=== PATIENT | male | born 1940 | race Caucasian/White ===

== ENCOUNTER → 2016-08-15 | Outpatient (CLI) | payer OTHER, BC | LOC: LAB 14:32 | PROVIDERS: ATTEND Physician Assistant Medical | DX: R73.09 Other abnormal glucose (principal) | CPT/HCPCS: 83036 ==

== ENCOUNTER → 2016-08-30 | Outpatient (CLI) | payer OTHER, BC | LOC: SLEEP LAB 19:18 | PROVIDERS: ATTEND Physician Assistant Medical | DX: G47.33 Obstructive sleep apnea (adult) (pediatric) (principal); G47.34 Idiopathic sleep related nonobstructive alveolar hypoventilation; G47.31 Primary central sleep apnea | CPT/HCPCS: 95811 ==

== ENCOUNTER → 2016-09-06 | Outpatient (CLI) | payer OTHER, BC | LOC: SLEEP LAB 19:40 | PROVIDERS: ATTEND Physician Assistant Medical | DX: G47.33 Obstructive sleep apnea (adult) (pediatric) (principal); G47.34 Idiopathic sleep related nonobstructive alveolar hypoventilation; G47.31 Primary central sleep apnea | CPT/HCPCS: 95811 ==

== ENCOUNTER → 2016-09-13 | Outpatient (CLI) | payer OTHER, BC | LOC: SLEEP LAB 19:37 | PROVIDERS: ATTEND Physician Assistant Medical | DX: G47.33 Obstructive sleep apnea (adult) (pediatric) (principal); G47.31 Primary central sleep apnea | CPT/HCPCS: 95811 ==

== ENCOUNTER → 2016-11-27 | Outpatient (CLI) | payer OTHER, BC ==
[2016-11-28 14:44] LABS: BASOPHILS # (AUTO) 0.01 10*3/UL; BASOPHILS % (AUTO) 0.1 % (0-1); EOSINOPHILS # (AUTO) 0.03 10*3/UL; EOSINOPHILS % (AUTO) 0.3 % (0-8); HEMOGLOBIN 12.4 g/dL (14.0-18.0); LYMPHOCYTES # (AUTO) 0.91 10*3/uL; MEAN CORPUSCULAR HEMOGLOBIN 35.4 PG (27-31); MEAN CORPUSCULAR HGB CONC 32.6 g/dL (33-37); MEAN CORPUSCULAR VOLUME 108.6 FL (80-90); MONOCYTES # (AUTO) 0.63 10*3/UL (0.3-0.8); MONOCYTES % (AUTO) 6.8 % (5-15); NEUTROPHILS # (AUTO) 7.65 10*3/UL; NEUTROPHILS % (AUTO) 82.4 % (50-80)
[2016-11-28 14:45] LABS: PLATELET MORPHOLOGY COMMENT NORMAL MORPHOLOGY (NORM); RBC MORPHOLOGY COMMENT NORMAL MORPHOLOGY (NORM); WBC MORPHOLOGY COMMENT NORMAL MORPHOLOGY (NORM)
[2016-11-28 14:51] LABS: BUN/CREATININE RATIO 21.25 (6-20); CALCIUM 8.4 mg/dL (8.7-10.7); SERUM ALBUMIN 3.5 g/dL (3.5-4.8)
[2016-11-28 14:54] LABS: HEMOGLOBIN A1C 7.17 % (4.2-6.0)
[2016-11-28 15:58] LABS: FREE T4 (FREE THYROXINE) 1.21 ng/dL (0.93-1.71)
== END ==
LOC: LAB 15:01
PROVIDERS: ATTEND Physician Assistant Medical
DX: I10 Essential (primary) hypertension (principal); G89.29 Other chronic pain; I48.91 Unspecified atrial fibrillation; R73.09 Other abnormal glucose; E78.5 Hyperlipidemia, unspecified; R06.02 Shortness of breath
CPT/HCPCS: 80053; 83036; 84439; 84443; 85025

== ENCOUNTER 2017-09-23 14:45 | Inpatient (IN) ==
[2017-09-23] MEDS ORDERED: Sodium Chloride 0.9% 1,000 ML PRIMARY IV ONE ×4 (15:20→20:00)
[2017-09-23] MEDS ORDERED: FAMOTIDINE 20 MG/2 ML VIAL IVP ONE (15:20)
[2017-09-23] MEDS ORDERED: ONDANSETRON 4 MG/2 ML VIAL IVP ONE (15:20)
--- NOTE | 2017-09-23 15:34 | EKG ---
[address] [place] [address] Measurements Intervals Glide Rate: 61 P: 84 [place]: 181 QRS: -31 QRSD: 146 T: 23 QT: 473 QTc: 475 Interpretive Statements SINUS RHYTHM T-WAVE ABNORMALITY, CONSIDER LATERAL ISCHEMIA Compared to ECG 08/09/2017 14:20:05 T-wave abnormality now present Possible ischemia now present Electronically Signed On 09-23-17 20:06:22 MDT by Reynaldo Ferguson [email or web address]
[2017-09-23 15:37] LABS: BASOPHILS # (AUTO) 0.01 10*3/UL; BASOPHILS % (AUTO) 0.1 % (0-1); EOSINOPHILS # (AUTO) 0.05 10*3/UL; EOSINOPHILS % (AUTO) 0.5 % (0-8); Hematocrit [HCT] 38.8 % (42.0-52.0); Hemoglobin [HGB] 13.6 g/dL (14.0-18.0); LYMPHOCYTES # (AUTO) 1.69 10*3/uL; MEAN CORPUSCULAR HGB CONC 35.1 g/dL (33-37); MEAN CORPUSCULAR VOLUME 105.4 FL (80-90); MEAN PLATELET VOLUME 10.2 FL (7.4-12.2); MONOCYTES # (AUTO) 0.76 10*3/UL (0.3-0.8); NEUTROPHILS # (AUTO) 8.36 10*3/UL; NEUTROPHILS % (AUTO) 76.5 % (50-80); RED BLOOD COUNT 3.68 10^6/uL (4.70-6.10)
[2017-09-23 15:38] LABS: PLATELET MORPHOLOGY COMMENT NORMAL MORPHOLOGY (NORM); RBC MORPHOLOGY COMMENT NORMAL MORPHOLOGY (NORM); WBC MORPHOLOGY COMMENT NORMAL MORPHOLOGY (NORM)
[2017-09-23 15:39] LABS: BLOOD UREA NITROGEN 45 mg/dL (7-22); LIPASE 144 IU/L (23-300); SERUM ALBUMIN 4.5 g/dL (3.5-4.8)
--- NOTE | 2017-09-23 18:20 | PDOC ---
HPI - History of Present Illness History of Present Illness: This is a very nice 77-year-old gentleman who comes to the ER because of the severe weakness where he can't even walk 3 feet 30 pound weight loss because every time he eats he has epigastric pain. Psoas found to be dehydrated with elevated BUNs and creatinine also had heme positive stool patient is on Eliquis. His last admission in 2015 he was diagnosed with A. fib and establish with the cardiology since then. Complains of nausea no strength abdominal pain every time he eats. He never followed up with the surgeon as an outpatient. He is now on fentanyl patch, methotrexate, diuretics. They can definitely be participating in his overall weakness and low potassium. He will be admitted for rehydration we will monitor possible echo in a.m. Past Medical History Medical History: 1. Atrial fibrillation, on Coumadin. 2. Rheumatoid arthritis. 3. Osteoarthritis. 4. BPH. 5. Hypercholesterolemia. 6. Hypertension. 7. GERD Surgical History: 1. Cholecystectomy. 2. Back surgery in 2013. 3. Carpal tunnel syndrome on both sides. 4. Imaging. 5. Right knee replacement. 6. Left knee revision Pertinent Family History: Significant for stroke in his mother, sister of diabetes complications, and father of heart failure complications Past Social History: Lives in [place], [place]. , has 3 children described as healthy, does not smoke or drink. 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 Tobacco Use: Never Smoker In the Past 12 Months, Have Used or Abuse Any of the Following Substance: None Medication / Allergies Home Medications: Home Medications 3 Medication Instructions Recorded Confirmed Type Metoprolol Succinate 1 tab PO DAILY #90 tab 11/23/15 08/24/17 History Methotrexate Sodium [Methotrexate] 6 tab PO WEEKLY #180 tab 08/14/16 08/24/17 Rx Acetaminophen [Tylenol Extra 1 tab PO Q3-4H tab 08/15/16 08/24/17 History Strength] Furosemide 40 mg PO BID #180 tab 08/15/16 08/24/17 Rx Apixaban [Eliquis] 5 mg PO BID #60 tab 09/20/16 Clinic predniSONE Tab [Deltasone Tab] 0.5 - 1 tab PO QD #90 tab 11/06/16 09/23/17 Rx Omeprazole 1 cap PO BID #180 cap 12/08/16 08/24/17 Rx Fentanyl [Duragesic] 75 mcgh TRANSDERM Q72HR #10 patch 12/12/16 Clinic Hydrocodone/Acetaminophen 1 tab PO Q4-6H #60 tab 12/21/16 Clinic [Hydrocodon-Acetaminophen 5-325] pravastatin 40 mg tablet 40 mg PO QHS #90 tab 01/24/17 09/23/17 Rx metaxalone 800 mg tablet 1 tab ORAL TID #90 tab 02/21/17 08/24/17 Rx sotalol 80 mg tablet 80 mg PO BID #60 tab 03/05/17 09/23/17 Rx tamsulosin 0.4 mg capsule 0.4 mg PO QD #90 cap 03/08/17 09/23/17 Rx gabapentin 600 mg tablet 600 mg PO BID #60 tab 05/17/17 08/24/17 Rx albuterol sulfate HFA 90 2 puff INH Q4-6H #1 inh 07/02/17 08/24/17 Rx mcg/actuation aerosol inhaler oxygen #1 ea 07/05/17 08/24/17 Rx silver sulfadiazine 1 % topical 1 applic TOPICAL QDAY #50 g 07/05/17 09/23/17 Rx cream cyanocobalamin (vit B-12) 2,500 5,000 mcg SL QDAY 08/09/17 08/24/17 History mcg sublingual tablet metolazone 2.5 mg tablet 2.5 mg PO QOD 08/09/17 09/23/17 History potassium chloride ER 20 mEq 20 meq PO QDAY #30 tab 08/20/17 09/23/17 Rx tablet,extended release fentanyl 75 mcg/hr transdermal 1 patch TRANSDERM Q72H #10 patch 08/29/17 Rx patch hydrocodone 10 mg-acetaminophen 1 tab PO TID #90 tab 08/29/17 Rx 325 mg tablet metformin 500 mg tablet 1 tab PO QD #30 tab 09/03/17 09/23/17 Rx allopurinol 300 mg tablet 300 mg ORAL QD #90 tab 09/17/17 Rx Allergies/Adverse Reactions: Allergies 3 Allergy/AdvReac Type Severity Reaction Status Date / Time aspirin Allergy Intermediate hives/rash Verified 09/23/17 14:58 Penicillins Allergy Intermediate rash Verified 09/23/17 14:58 NSAIDS (Non-Steroidal Allergy NOT Verified 09/23/17 14:58 Anti-Inflamma APPLICABLE Review of Systems - Review of Systems All Systems: Reviewed & No Additional Complaints Except as Stated - Respiratory Respiratory: DENIES: Negative System Review, Cough, Sputum, Dyspnea At Rest, Dyspnea with Exertion, Pleuritic Pain, Hemoptysis, Wheezing, Other, See HPI - Cardiovascular Cardiovascular: DENIES: Negative System Review, Chest Pain, Edema, Syncope, Palpitations, Orthopnea, Paroxysmal Nocturnal Dyspnea, Other, See HPI - Gastrointestinal Gastrointestinal / Abdominal: REPORTS: Nausea, Abdominal Pain, Bloody Stool, Poor Appetite, Bloating Exam - Vitals Vital Signs: Vital Signs Temperature 97.6 F Temperature Source Temporal Artery Scan Pulse Rate [Pulse Oximeter 60 Bilateral Radial] Respiratory Rate 18 Blood Pressure [Left Arm] 97/69 Pulse Ox 94 Oxygen Delivery Method Room Air Height 6 ft Weight 237 lb - General General Appearance: No Acute Distress, Cooperative, Disheveled - Eye Additional Eye Exam Details: 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 he had 2 retinal surgeries - Neck Neck Exam: Normal Inspection, Full ROM, No Tenderness, No Lymphadenopathy, No Thyromegaly, JVP is not Raised - Respiratory Respiratory Exam: POSITIVE: Clear to Auscultation - Bilaterally, Breathing Non Labored, Normal To Percussion, Normal to Percussion and Palpation - Cardiovascular Cardiovascular Exam: POSITIVE: RRR, No Murmur, No Clicks, No Gallops, No Rubs, PMI Non-Displaced - GI/Abdominal GI/Abdominal Exam: POSITIVE: Normal Bowel Sounds, Non Tender, Non Distended, Soft, No Masses, No Hepatomegaly, No Splenomegaly, No Organomegaly - Extremities Extremities Exam: POSITIVE: No Clubbing Present, +1 Edema Results - Labs CBC and BMP: 09/23/17 15:20 09/23/17 15:20 Assessment and Plan - Patient Problems (1) Fatigue Current Visit: Yes Status: Acute Code(s): R53.83 - Other fatigue (2) Heme positive stool Current Visit: Yes Status: Acute Code(s): R19.5 - Other fecal abnormalities (3) Abdominal pain Current Visit: No Status: Acute Code(s): R10.9 - Unspecified abdominal pain (4) Epigastric pain Current Visit: No Status: Acute Code(s): R10.13 - Epigastric pain (5) Hypercholesterolemia Current Visit: No Status: Acute Code(s): E78.0 - Pure hypercholesterolemia (6) Hypertension Current Visit: No Status: Acute Code(s): I10 - Essential (primary) hypertension Qualifiers: (7) On prednisone therapy Current Visit: No Status: Acute Code(s): Z79.52 - long term (current) use of systemic steroids (8) Rheumatoid arthritis Current Visit: No Status: Acute Code(s): M06.9 - Rheumatoid arthritis, unspecified Qualifiers: (9) Benign hypertension Current Visit: No Status: Chronic (10) Gastroesophageal reflux disease Current Visit: No Status: Chronic - Assessment / Plan Additional Assessment/Plan Details: # very nice 77-year-old gentleman with multiple medical issues and multiple medication presents with a 30 pound weight loss most likely secondary to having epigastric pain and abdominal fascia after he eats and also makes him feel sick. Patient is extremely fatigued. Most likely multifactorial from fentanyl patch, Neurontin, opioids orally. Patient is immunosuppressed on methotrexate and prednisone therapy also has A. fib on sotalol which could also be participating in this patient's nausea and unable to take food. I will admit him hydrate and replace his potassium given him 2 g of magnesium I will hold his fentanyl patch and Neurontin ultimately most likely the sotalol elective most likely will need to be held after discussion with the ladle pourer also hold his Eliquis considering his heme positive stool. I did discuss with the patient that we were holding the Eliquis and he would be at increased risk for stroke. He understands but with the heme positive stool and may be possible even epigastric ulcer this would be appropriate he understands the risks and agrees discussed with nursing daughter and
[2017-09-23] MEDS ORDERED: Magnesium Sulfate 2gm (Premix) 2 GM/50 ML BAG IV ONE ×2 (18:22→20:00)
[2017-09-23] MEDS ORDERED: ACETAMINOPHEN 500 MG TABLET PO SCH (18:22)
[2017-09-23] MEDS ORDERED: LIDOCAINE HCL 2 % 10 ML JELLY URO-JECT TOPICAL PRN (18:22)
[2017-09-23] MEDS ORDERED: PANTOPRAZOLE IV 40 MG VIAL IVP SCH (18:30)
[2017-09-23] MEDS ORDERED: ALBUTEROL SULFATE 8.5 GM HFA INHALER INH SCH (19:00)
[2017-09-23] MEDS ORDERED: LIDOCAINE W/ SODIUM BICARB 0.5 ML SYR SUBD PRN (19:42)
[2017-09-23] MEDS ORDERED: ONDANSETRON 4 MG/2 ML VIAL IVP PRN (19:43)
[2017-09-23] MEDS ORDERED: ALBUTEROL SULFATE 8.5 GM HFA INHALER INH PRN (19:45)
[2017-09-23] MEDS: Pravastatin Tab 40 MG TAB PO SCH (20:03)
[2017-09-23] MEDS: HYDROcodone-APAP 10 MG-325 MG TABLET PO SCH (20:06)
[2017-09-23] MEDS: Sotalol Tab 80 MG TAB PO SCH (20:10)
[2017-09-24] MEDS ORDERED: ACETAMINOPHEN 500 MG TABLET PO PRN (01:58)
[2017-09-24 04:46] LABS: BASOPHILS # (AUTO) 0.01 10*3/UL; BASOPHILS % (AUTO) 0.1 % (0-1); EOSINOPHILS # (AUTO) 0.14 10*3/UL; EOSINOPHILS % (AUTO) 1.6 % (0-8); Hematocrit [HCT] 33.4 % (42.0-52.0); Hemoglobin [HGB] 11.5 g/dL (14.0-18.0); LYMPHOCYTES # (AUTO) 1.92 10*3/uL; MEAN CORPUSCULAR HEMOGLOBIN 36.7 PG (27-31); MEAN CORPUSCULAR HGB CONC 34.4 g/dL (33-37); MEAN CORPUSCULAR VOLUME 106.7 FL (80-90); MEAN PLATELET VOLUME 10.3 FL (7.4-12.2); MONOCYTES # (AUTO) 0.67 10*3/UL (0.3-0.8); MONOCYTES % (AUTO) 7.8 % (5-15); NEUTROPHILS # (AUTO) 5.82 10*3/UL; NEUTROPHILS % (AUTO) 67.7 % (50-80); RED BLOOD COUNT 3.13 10^6/uL (4.70-6.10)
[2017-09-24 04:51] LABS: WBC MORPHOLOGY COMMENT NORMAL MORPHOLOGY (NORM)
[2017-09-24 04:52] LABS: PLATELET MORPHOLOGY COMMENT NORMAL MORPHOLOGY (NORM); RBC MORPHOLOGY COMMENT NORMAL MORPHOLOGY (NORM)
[2017-09-24 05:21] LABS: BLOOD UREA NITROGEN 36 mg/dL (7-22)
--- NOTE | 2017-09-24 06:51 | PDOC ---
General Adult HPI - General Chief Complaint: Nausea / Vomiting / Diarrhea Stated Complaint: WEAKNESS Date Seen by Provider: 09/23/17 Time Seen by Provider: 15:00 Source: POSITIVE: Patient, Spouse Exam Limitations: POSITIVE: No limitations Nurse's Notes Reviewed & Considered: Yes - History of Present Illness Initial Comment: The patient is a 77-year-old male who is brought to the emergency room by his . For approximately the past 2 weeks the patient states he has had difficulty eating because of pain when he swallows, located mainly in the center sternal and subxiphoid area. He states he is "getting real weak". The patient fell last night as he was walking to the bathroom because he was "weak and lost his balance ". The patient had to have his granddaughter helped him to his feet and back to bed. The patient and his also report that he is been having some "blood in his stool ". Patient has a history of type II diabetes mellitus for which she takes metformin. Also has a history of atrial fibrillation and is on Laura Reymundo. 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 Patient has been receiving injections into his left eye. Patient has a history of arthritis for which she takes methotrexate and he also takes a fentanyl patch for arthritic pain. reports that he has a history of hypokalemia and hypomagnesemia. Have you received a tetanus shot in the past 10 years?: Unknown Body Location Affected: REPORTS: Other (As above; odynophagia, blood in stool, generalized weakness.) Timing: REPORTS: Gradual, Getting Worse Duration: >1 week (Progressively worse for 2 days) Severity: Moderate Quality: REPORTS: "Pain" (Pain mainly with swallowing) Context: REPORTS: None Modifying Factors: improves with: Nothing Similar Symptoms Previously: No Recent Care Received: REPORTS: Denies Any Prior Injuries Related to Current Complaint?: No - Patient Home Medications Home Medications: Home Medications Metoprolol Succinate 1 tab PO DAILY #90 tab 11/23/15 Methotrexate Sodium [Methotrexate] 6 tab PO WEEKLY #180 tab 08/14/16 Acetaminophen [Tylenol Extra Strength] 1 tab PO Q3-4H tab 08/15/16 Furosemide 40 mg PO BID #180 tab 08/15/16 Apixaban [Eliquis] 5 mg PO BID #60 tab 09/20/16 predniSONE Tab [Deltasone Tab] 0.5 - 1 tab PO QD #90 tab 11/06/16 Omeprazole 1 cap PO BID #180 cap 12/08/16 Fentanyl [Duragesic] 75 mcgh TRANSDERM Q72HR #10 patch 12/12/16 Hydrocodone/Acetaminophen [Hydrocodon-Acetaminophen 5-325] 1 tab PO Q4-6H #60 tab 12/21/16 pravastatin 40 mg tablet 40 mg PO QHS #90 tab 01/24/17 metaxalone 800 mg tablet 1 tab ORAL TID #90 tab 02/21/17 sotalol 80 mg tablet 80 mg PO BID #60 tab 03/05/17 tamsulosin 0.4 mg capsule 0.4 mg PO QD #90 cap 03/08/17 gabapentin 600 mg tablet 600 mg PO BID #60 tab 05/17/17 albuterol sulfate HFA 90 mcg/actuation aerosol inhaler 2 puff INH Q4-6H #1 inh 07/02/17 oxygen #1 ea 07/05/17 silver sulfadiazine 1 % topical cream 1 applic TOPICAL QDAY #50 g 07/05/17 cyanocobalamin (vit B-12) 2,500 mcg sublingual tablet 5,000 mcg SL QDAY metolazone 2.5 mg tablet 2.5 mg PO QOD 08/09/17 potassium chloride ER 20 mEq tablet,extended release 20 meq PO QDAY #30 tab 07/08 fentanyl 75 mcg/hr transdermal patch 1 patch TRANSDERM Q72H #10 patch 08/29/17 hydrocodone 10 mg-acetaminophen 325 mg tablet 1 tab PO TID #90 tab 08/29/17 metformin 500 mg tablet 1 tab PO QD #30 tab 09/03/17 allopurinol 300 mg tablet 300 mg ORAL QD #90 tab 09/17/17 - Patient Allergies Allergies/Adverse Reactions: Allergies 3 Allergy/AdvReac Type Severity Reaction Status Date / Time aspirin Allergy Intermediate hives/rash Verified 09/23/17 14:58 Penicillins Allergy Intermediate rash Verified 09/23/17 14:58 NSAIDS (Non-Steroidal Allergy NOT Verified 09/23/17 14:58 Anti-Inflamma APPLICABLE Past Medical History - heen HEENT History: Cataracts, Hard of Hearing Cardiovascular History: Hypertension, Arrhythmia, Hyperlipidemia Additional Cardiovasular History: A-FIB PT ON ELIQUIS Respiratory History: Home Oxygen Use, Snoring Additional Respiratory History: 3.5LITERS AT HS Gastrointestinal History: GERD, Gallbladder Disease Additional Gastrointestinal History: gallstones LAP BANDING IN AND REMOVED Genitourinary History: Denies History Additional Genitourinary History: HX OF BPH Endocrine History: Denies History Musculoskeletal History: Gout, Rheumatoid Arthritis, Osteoarthritis, Other ( please comment) Prosthesis or Implant: Yes (RIGHT KNEE) Additional Musculoskeletal History: ambulatory w/cane Neurological History: Denies History Blood Disorders: Other (please comment) Additional Blood Disorders History: Vit B12 def. Psychiatric History: Denies History History of Sexually Transmitted Diseases: No Cancer History: Skin Cancer Treatment / Date(s) of Treatment: REMOVED SKIN CANCER In Past Year Been Physically Harmed or Verbally Threatened: No History of MDRO: No History of Other Communicable Diseases: No Tobacco Use: Never Smoker Alcohol Use: Rarely In the Past 12 Months, Have Used or Abuse Any Substance: None Previous Surgical History: Yes Type / Date of Surgery: BILAT CTR/ BILAT CATARACTS/ GARO/ EGD TO REMOVE LAP BAND/ LAP BAND/ BILAT KNEE SCOPE/ UPPER SPINE LUMBAR STENOSIS DERMAL FASCIS GRAFT/RIGHT TKA Anesthesia Reactions: No Malignant Hyperthermia: No Significant Family History: No pertinent family hx Past Medical History Reviewed: Reviewed - No Changes ROS - Limitations ROS Limitations: No Limitations Constitution: REPORTS: Denies Symptoms Cardiovascular: REPORTS: Denies Cardiac Symptoms Respiratory: REPORTS: Denies Resp Symptoms Neurological: REPORTS: Denies Neuro Symptoms Gastrointestinal: REPORTS: Bloody Stools Endocrine: REPORTS: Fatigue Musculoskeletal: REPORTS: Denies MS Symptoms Genitourinary: REPORTS: Denies Symptoms Eyes: REPORTS: Denies Symptoms ENT: REPORTS: Denies Symptoms Skin: REPORTS: Denies Skin Symptoms Lympathic: REPORTS: Denies Lympathic Symptoms Immunologic: POSITIVE: Denies Symptoms Psychiatric: POSITIVE: Denies Psych Symptoms General Adult Exam - General Appearance General Appearance: POSITIVE: Alert, Cooperative, No Acute Distress, No Evidence of Trauma - HEENT HEENT: POSITIVE: Head Inspection Nml, Eyes Inspection Nml, Ears Inspection Nml, Nose Inspection Nml, Oral/Dental Inspect. Nml, Pharynx Inspect. Nml, PERRL, EOMI - Pupils Pupil Size: 4 mm: Bilateral - Neck Neck: POSITIVE: Normal Inspection, Thyroid Normal - Respiratory Respiratory: POSITIVE: No Respiratory Distress, Breath Sounds Normal, Chest Non- Tender - Cardiovascular Cardiovascular: POSITIVE: Regular Rate & Rhythm, No Murmur, No Gallop, PMI Normal Peripheral Pulses: Radial (R): 2+, Radial (L): 2+ - Abdomen Abdomen: Soft: (All Quadrants), Normal Bowel Sounds: (All Quadrants), Denies Tenderness: (All Quadrants), No Splenomegaly: (All Quadrants), No Hepatomegaly: (All Quadrants), No Guarding: (All Quadrants), No Rebound: (All Quadrants), No Palpable Pulse: (All Quadrants), No Palpabale Mass: (All Quadrants), No Distention: (All Quadrants), No Rigidity: (All Quadrants) Additional Abdominal Details: I observed the patient swallowing some water. As he did so he complained of pain in the subxiphoid and substernal area. He had no regurgitation or vomiting. 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 NEGATIVE: Normal ST/T (T-wave inversion and some depression V1 through V5) - Patient's Progress Pain Medication Addressed: POSITIVE: Not Applicable School/Work Release Addressed: POSITIVE: Not Applicable Re-Examine Time: 17:00 Re-Examine Comment: Patient hydrated with normal saline. Condition essentially unchanged. Case discussed with Dr. Hinson, hospitalist Status: POSITIVE: Unchanged, Re-Examined Antibiotics Given: No - Consult Consult (If Yes, Name of Consulting MD & Time Called): Yes (Dr. Hinson, hospitalist, [id number]) Consulting MD will see pt:: [place]IVE[place] [facility] [place] Counseled: POSITIVE: Patient, Family, RE: Lab Results, RE: DX, RE: Need for F/U Patient Care Time - Estimated PCT Patient Care Time (In Minutes): 60 Vital Signs - VS Reviewed Vital Signs Reviewed: Yes Discharge Clinical Impression: Arthritis, Odynophagia, Gastrointestinal bleeding, Hypokalemia, Diabetes mellitus, Abnormal ECG Discharge Disposition: Admit to Inpatient Condition: Fair Date Decision to Admit to Inpatient: 09/23/17 Time Decision to Admit to Inpatient: 16:00
[2017-09-24] MEDS: HYDROcodone-APAP 10 MG-325 MG TABLET PO SCH ×3 (08:37→21:40)
[2017-09-24] MEDS: predniSONE Tab 20 MG TAB PO SCH ×2 (08:37→08:58)
[2017-09-24] MEDS: Sotalol Tab 80 MG TAB PO SCH ×3 (08:37→21:18)
[2017-09-24] MEDS: METOPROLOL SUCCINATE 50 MG SR 24H TABLET PO SCH (08:37)
[2017-09-24] MEDS: TAMSULOSIN 0.4 MG CAPSULE PO SCH ×2 (08:37→08:58)
[2017-09-24] MEDS: POTASSIUM CHLORIDE 20 MEQ TAB PO SCH ×2 (08:57→21:17)
[2017-09-24] MEDS ORDERED: CYANOCOBALAMIN 5000 MCG SL SCH (09:00)
[2017-09-24] MEDS: PANTOPRAZOLE IV 40 MG VIAL IVP SCH (09:45)
[2017-09-24] MEDS ORDERED: Magnesium Sulfate 2gm (Premix) 2 GM/50 ML BAG IV ONE (10:39)
[2017-09-24] MEDS ORDERED: Hold Metformin-See Instruction 1 EACH MIS PRN (12:31)
--- NOTE | 2017-09-24 16:09 | DI ---
CT CHEST SCAN WITHOUT IV CONTRAST, 09/24/2017 12:31 PM : Clinical History: Hypoxia. Weight loss. Previous Exam: None at this facility. Scans are performed from the base of the neck to the lower lung bases without IV contrast. Sagittal a nd coronal images using non MIPS and MIPS technique are generated. There is deviation of the trachea to the left of midline secondary to a large partially calcified mas s in the right lobe of the thyroid gland consistent with a substernal goiter. The right lobe measures approximately 35 x 45 x 50 mm in transverse, AP, and longitudinal dimensions. There is a large amoun t of mediastinal fat extending from the thoracic inlet to the superior mediastinum. There are no abno rmal axillary, supraclavicular, mediastinal, or hilar nodes. Calcifications are present in all 3 leaf lets of the aortic valve. There are calcifications in the left mainstem, the proximal third of the LA D and first diagonal branch, as well as the left circumflex and right coronary arteries. There is a d ense calcification at the base of the heart between the left atrium and ventricle and this may be bruna cification of the mitral valve annulus but a calcified inferior wall infarct cannot entirely be exclu ded. There is no acute infiltrate, but there is atelectasis in the right lower lobe along with mild l ower lobe bronchiectasis bilaterally. There is atelectasis in the lateral segment of the right middle lobe and the right diaphragm is elevated. Pleural thickening is present posteriorly in the left sulc us. There is a small calcified 3-4 mm granuloma in the right lower lobe. Both adrenal glands are norm al. READIN. There is no acute infiltrate or effusion. There is atelectasis involving the lateral segment of t he right middle lobe and in the right lower lobe. Mild bronchiectasis is present in both lower lobes. Pleural thickening is present posteriorly in the left sulcus. 2. The aortic valve has calcifications in all 3 leaflets. Calcifications are present in all 3 major coronary arteries. 3. There is a calcification near the region of the mitral valve inferiorly in this either represents calcification in the mitral valve annulus or possibly a calcified inferior wall infarct.
--- NOTE | 2017-09-24 16:36 | DI ---
CT ABDOMEN SCAN WITHOUT AND WITH IV CONTRAST, 09/24/2017 12:31 PM : Clinical History: Heme positive stools. Weight loss. Previous Exam: 09/14/2011. Scans are performed from the lower lung bases through the liver and kidneys without and with IV contr ast. 75 mL of Isovue 300 was injected IV. No oral or rectal contrast was ordered. Sagittal and mcleod l reformatted images are generated. The lung bases are clear. The liver is normal. The patient is status post cholecystectomy and the com mon bile duct measures 8 mm. Since the last exam, a stent may have been placed in the distal common b ile duct. Both adrenal glands, the pancreas, and the spleen are normal. Both kidneys are normal in si ze, shape, position and contour. There is no hydronephrosis or hydroureter. No left renal or ureteral calculi are present. There is a 3-4 mm nonobstructing lower pole renal calculus on the right side. T here is no right hydroureter. There are no abnormal retrocrural or periaortic nodes. There is no asci jorge. The stomach, duodenum, and the small bowel to at least the mid point are normal. The ascending, transverse, and descending colon show no annular lesion. The remainder of the colon is not visualized . READIN. There is no obvious lesion to explain the blood loss in the visualized portions of the of the sto mach, small bowel and colon. 2. There is a nonobstructing 3-4 mm right renal calculus in the lower pole.
--- NOTE | 2017-09-24 19:29 | PDOC(PROG) ---
Date and Time of Service: 09/24/2017, 1923 Interval History: seen twice today no chest pain gets food stuck in lower chest and this has been going on for some time. Has lost 30 pounds in the last 6 . Was guaiac positive in the emergency room. 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 Had a heart catheterization done by Dr. Ramírez in [place]. We will try and get records. Still quite weak and fatigued. Objective : Data - Labs CBC and BMP: 09/24/17 04:12 09/24/17 04:12 Objective : Exam - General General Appearance: No Acute Distress, Cooperative Additional General Exam Details: Vital Signs - Last Taken Temperature 97.7 F 09/24/17 17:00 Pulse Rate 59 L 09/24/17 17:00 Respiratory Rate 18 09/24/17 17:00 Blood Pressure 122/64 09/24/17 17:00 Pulse Ox 94 09/24/17 17:00 - Eye Eye Exam: No Scleral Icterus - ENT ENT Exam: Mucous Membranes Moist - Respiratory Respiratory Exam: Clear to Auscultation - Bilaterally, Breathing Non Labored - Cardiovascular Cardiovascular Exam: RRR, No Murmur, No Clicks, No Gallops, No Rubs, No JVD - GI/Abdominal GI/Abdominal Exam: Normal Bowel Sounds, Non Tender, Non Distended, Soft - Rectal Rectal Exam: Deferred (Was done in the emergency room and my discussion with hospitalist going off service today.) - Extremities Extremities Exam: No Clubbing Present, No Edema Present, No Cyanosis Present - Neurological Neurological Exam: Alert, Oriented x 3, No Facial Droop, Speech Intact / Clear, Moves All Extremities Equally Assessment and Plan - Patient Problems (1) Heme positive stool Current Visit: Yes Status: Acute Code(s): R19.5 - Other fecal abnormalities (2) Abdominal pain Current Visit: Yes Status: Acute Code(s): R10.9 - Unspecified abdominal pain Qualifiers: Abdominal location: generalized Qualified Code(s): R10.84 - Generalized abdominal pain (3) Epigastric pain Current Visit: Yes Status: Acute Code(s): R10.13 - Epigastric pain (4) Rheumatoid arthritis Current Visit: Yes Status: Acute Code(s): M06.9 - Rheumatoid arthritis, unspecified Qualifiers: Rheumatoid arthritis location: multiple sites Rheumatoid factor presence: unspecified presence Qualified Code(s): M06.9 - Rheumatoid arthritis, unspecified (5) On prednisone therapy Current Visit: Yes Status: Chronic Code(s): Z79.52 - senior living (current) use of systemic steroids (6) Hypercholesterolemia Current Visit: Yes Status: Chronic Code(s): E78.0 - Pure hypercholesterolemia (7) Hypertension Current Visit: No Status: Acute Code(s): I10 - Essential (primary) hypertension Qualifiers: (8) Benign hypertension Current Visit: Yes Status: Chronic (9) Gastroesophageal reflux disease Current Visit: Yes Status: Chronic Qualifiers: Esophagitis presence: esophagitis presence not specified Qualified Code(s) : K21.9 - Gastro-esophageal reflux disease without esophagitis (10) Fatigue Current Visit: Yes Status: Acute Code(s): R53.83 - Other fatigue Qualifiers: Fatigue type: chronic, unspecified Qualified Code(s): R53.82 - Chronic fatigue, unspecified (11) Loss of weight Current Visit: Yes Status: Acute Code(s): R63.4 - Abnormal weight loss - Assessment / Plan Additional Assessment/Plan Details: There is a whole constellation of several medical findings, including heme positive stool, anemia, possibly, epigastric pain, dysphagia to solids and liquids, in fact the patient tells me along with his and daughter that he has avoided solid food intake. Given this constellation of findings, I think that more investigative work will need to be done, including CT scans of the chest, abdomen and pelvis, as well as probable EGD and colonoscopy. I spoke with surgery. I think these need to be done inpatient, particularly with his atrial fibrillation and novel oral anticoagulant therapy need. This all should be done as an inpatient given the extensive nature of the workup , and the fact that the patient really needs to have this figured out to some degree prior to discharge. Do thyroid studies, B12 levels and other levels tomorrow. I consulted surgery and we will start prep tomorrow and give him more time off of eliquis Try to cut out on opiate therapy as much as possible. Stop fentanyl altogether. 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 The patient is not symptomatic from his atrial fibrillation, but I don't know how he responded to rate control agents in the past and find out that from old records. Complex, multiple issues, general malaise and ill. Discussed with family at bedside.
--- NOTE | 2017-09-24 20:24 | DI ---
CT ABDOMEN SCAN WITHOUT AND WITH IV CONTRAST, 09/24/2017 6:40 PM : Clinical History: Weight loss. Weakness. Hemoccult positive stools. Previous Exam: 09/14/[address] abdomen scan from today. Scans are performed from the lower lung bases through the liver and kidneys without and with IV contr ast. Sagittal and coronal images are generated. 50 mL of Isovue 300 was injected IV. Water was used f or oral contrast for this study. The patient did receive Volumen for the CT scans of the abdomen perf ormed earlier today. Mild bronchiectasis is present in both lower lobes. There is calcific aortic valvular disease along w ith calcifications in the LAD and left mainstem and the right coronary artery and the left circumflex artery. The liver is normal. The patient is status post cholecystectomy and the common bile duct randall sures 8 mm. As previously noted, this patient may have stents in the common bile duct. There is no ab normality of the spleen, pancreas, and adrenal glands. Both kidneys are normal in size, shape, positi on and contour. There is no hydronephrosis or hydroureter. No renal or ureteral calculi are present. There are no abnormal retrocrural or periaortic nodes. There is no ascites. READIN. Normal CT abdomen scan without and with IV contrast. There may be a stent in the common bile duct . 2. Calcific aortic valvular disease. Coronary artery disease. CT PELVIS SCAN WITHOUT AND WITH IV CONTRAST, 09/24/2017 6:40 PM: Clinical History: See above. Previous Exam: 09/14/2011. Scans are performed from just superior to the umbilicus to the symphysis pubis without and with IV co ntrast. This is the same bolus of IV contrast used for the CT scans of the abdomen. Scans through the lower abdomen and pelvis show no masses, enhancing lesions, or abnormal fluid colle ctions. There is no adenopathy. The appendix is not visualized but there is no inflammatory mass eith er in the cecal tip or in the right lower quadrant. The small bowel, terminal ileum, and ileocecal va lve are intact. The colon is also normal. No annular lesions of the colon are identified. There is d iffuse diverticulosis without evidence of diverticulitis. There is a small umbilical hernia through w hich only mesenteric fat has herniated. Moderate prostatic hypertrophy is present. There are calcific ations along the posterior aspect of the ischium and this presumably is secondary to prior trauma to that portion of the pelvis. READING: Normal CT scan of the pelvis without and with IV contrast. There is no obvious lesion to explain the presence of blood in the patient's stools.
[2017-09-24] MEDS: Pravastatin Tab 40 MG TAB PO SCH (21:18)
[2017-09-25 05:11] LABS: Hematocrit [HCT] 30.9 % (42.0-52.0); Hemoglobin [HGB] 10.6 g/dL (14.0-18.0); MEAN CORPUSCULAR HEMOGLOBIN 37.1 PG (27-31); MEAN CORPUSCULAR HGB CONC 34.3 g/dL (33-37); MEAN PLATELET VOLUME 9.8 FL (7.4-12.2); RED BLOOD COUNT 2.86 10^6/uL (4.70-6.10)
[2017-09-25 05:34] LABS: BLOOD UREA NITROGEN 22 mg/dL (7-22); BUN/CREATININE RATIO 31.42 (6-20); SERUM ALBUMIN 2.9 g/dL (3.5-4.8)
[2017-09-25 06:02] LABS: PLATELET MORPHOLOGY COMMENT NORMAL MORPHOLOGY (NORM); RBC MORPHOLOGY COMMENT SEE COMMENTS (NORM)
[2017-09-25 06:03] LABS: BAND NEUTROPHILS % 0 % (0-10); BASOPHILS % (MANUAL) 0 % (0-1); EOSINOPHILS % (MANUAL) 0 % (0-8); MONOCYTES % (MANUAL) 4 % (0-12); NEUTROPHILS % (MANUAL) 74 % (50-80); WBC MORPHOLOGY COMMENT NORMAL MORPHOLOGY (NORM)
[2017-09-25] MEDS: POTASSIUM CHLORIDE 20 MEQ TAB PO SCH (08:21)
[2017-09-25] MEDS: predniSONE Tab 20 MG TAB PO SCH (08:21)
[2017-09-25] MEDS: Sotalol Tab 80 MG TAB PO SCH ×2 (08:21→08:23)
[2017-09-25] MEDS: METOPROLOL SUCCINATE 50 MG SR 24H TABLET PO SCH ×2 (08:21→08:24)
[2017-09-25] MEDS: PANTOPRAZOLE IV 40 MG VIAL IVP SCH (08:21)
[2017-09-25] MEDS: TAMSULOSIN 0.4 MG CAPSULE PO SCH (08:21)
[2017-09-25] MEDS: HYDROcodone-APAP 10 MG-325 MG TABLET PO SCH (08:21)
--- NOTE | 2017-09-25 09:28 | CONSULT ---
Consult Note - Consult Consult Date: 09/25/17 Reason for Consult: PreOp Consulation : General Surgery Requesting Physician: Dr. Weber Primary Care Provider: Jessica Hollingsworth PA-C - History of Present Illness History of Present Illness: This 77-year-old male whose be developed over last month some epigastric abdominal discomfort. He doesn't really class that his pain is sick, nauseated feeling. He does point to the midepigastric to right upper quadrant area. Patient's laboratory values all were within normal limits. Patient did have Hemoccult-positive stools. Patient had a CT scan shows that he has a biliary stent in place. Reviewing the records he had a laparoscopic cholecystectomy in 2011. At that time he was sent for an ERCP because a common duct stones. Therefore, he's had a biliary stent in since 2011. Past Medical History Medical History: 1. Atrial fibrillation, on Coumadin. 2. Rheumatoid arthritis. 3. Osteoarthritis. 4. BPH. 5. Hypercholesterolemia. 6. Hypertension. 7. GERD Surgical History: 1. Cholecystectomy. 2. Back surgery in 2013. 3. Carpal tunnel syndrome on both sides. 4. Imaging. 5. Right knee replacement. 6. Left knee revision Pertinent Family History: Significant for stroke in his mother, sister of diabetes complications, and father of heart failure complications Past Social History: Lives in [place], [place]. , has 3 children described as healthy, does not smoke or drink. 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 Tobacco Use: Never Smoker In the Past 12 Months, Have Used or Abuse Any of the Following Substance: None Medication / Allergies Home Medications: Home Medications 3 Medication Instructions Recorded Confirmed Type Metoprolol Succinate 1 tab PO DAILY #90 tab 11/23/15 08/24/17 History Methotrexate Sodium [Methotrexate] 6 tab PO WEEKLY #180 tab 08/14/16 08/24/17 Rx Acetaminophen [Tylenol Extra 1 tab PO Q3-4H tab 08/15/16 08/24/17 History Strength] Furosemide 40 mg PO BID #180 tab 08/15/16 08/24/17 Rx Apixaban [Eliquis] 5 mg PO BID #60 tab 09/20/16 Clinic predniSONE Tab [Deltasone Tab] 0.5 - 1 tab PO QD #90 tab 11/06/16 09/23/17 Rx Omeprazole 1 cap PO BID #180 cap 12/08/16 08/24/17 Rx Fentanyl [Duragesic] 75 mcgh TRANSDERM Q72HR #10 patch 12/12/16 Clinic Hydrocodone/Acetaminophen 1 tab PO Q4-6H #60 tab 12/21/16 Clinic [Hydrocodon-Acetaminophen 5-325] pravastatin 40 mg tablet 40 mg PO QHS #90 tab 01/24/17 09/23/17 Rx metaxalone 800 mg tablet 1 tab ORAL TID #90 tab 02/21/17 08/24/17 Rx sotalol 80 mg tablet 80 mg PO BID #60 tab 03/05/17 09/23/17 Rx tamsulosin 0.4 mg capsule 0.4 mg PO QD #90 cap 03/08/17 09/23/17 Rx gabapentin 600 mg tablet 600 mg PO BID #60 tab 05/17/17 08/24/17 Rx albuterol sulfate HFA 90 2 puff INH Q4-6H #1 inh 07/02/17 08/24/17 Rx mcg/actuation aerosol inhaler oxygen #1 ea 07/05/17 08/24/17 Rx silver sulfadiazine 1 % topical 1 applic TOPICAL QDAY #50 g 07/05/17 09/23/17 Rx cream cyanocobalamin (vit B-12) 2,500 5,000 mcg SL QDAY 08/09/17 08/24/17 History mcg sublingual tablet metolazone 2.5 mg tablet 2.5 mg PO QOD 08/09/17 09/23/17 History potassium chloride ER 20 mEq 20 meq PO QDAY #30 tab 08/20/17 09/23/17 Rx tablet,extended release fentanyl 75 mcg/hr transdermal 1 patch TRANSDERM Q72H #10 patch 08/29/17 Rx patch hydrocodone 10 mg-acetaminophen 1 tab PO TID #90 tab 08/29/17 Rx 325 mg tablet metformin 500 mg tablet 1 tab PO QD #30 tab 09/03/17 09/23/17 Rx allopurinol 300 mg tablet 300 mg ORAL QD #90 tab 09/17/17 Rx Allergies/Adverse Reactions: Allergies 3 Allergy/AdvReac Type Severity Reaction Status Date / Time aspirin Allergy Intermediate hives/rash Verified 09/24/17 07:33 Penicillins Allergy Intermediate rash Verified 09/24/17 07:33 NSAIDS (Non-Steroidal Allergy NOT Verified 09/24/17 07:33 Anti-Inflamma APPLICABLE Results - Labs CBC and BMP: 09/25/17 04:55 09/25/17 04:55 Exam - Vitals Vital Signs: Vital Signs Temperature 97.1 F Temperature Source Temporal Artery Scan Pulse Rate [Pulse Oximeter] 59 Pulse Rate [Pulse Oximeter 59 Bilateral Radial] Respiratory Rate 18 Blood Pressure [Right Arm] 121/65 Blood Pressure [Left Arm] 111/65 Pulse Ox 97 Oxygen Flow Rate 2 Oxygen Delivery Method Room Air Height 6 ft Weight 241 lb - General General Appearance: No Acute Distress - GI/Abdominal GI/Abdominal Exam: POSITIVE: Non Tender, Non Distended Assessment and Plan - Patient Problems (1) Abdominal pain Current Visit: Yes Status: Acute Code(s): R10.9 - Unspecified abdominal pain Qualifiers: Abdominal location: generalized Qualified Code(s): R10.84 - Generalized abdominal pain - Assessment / Plan Additional Assessment/Plan Details: At this point using a biliary stent may be causing all the patient's symptoms. This could be causing abdominal pain. Also if his irritations light bleeding could be causing some Hemoccult-positive stools. Patient did have a unremarkable EGD and colonoscopy in 2016. I did call Dr. Covarrubias who does agree that the biliary stent needs removed. I would recommend that we get an appointment with and then he can get the biliary stent out at that time.
--- NOTE | 2017-09-25 11:47 | DCSUMMARY ---
Hospitalization Summary Admit Date: 09/23/2017 Discharge Date: 09/25/17 Primary Diagnosis:: epigastric pain, GI bleed, retained biliary stent Hospital Course: This very pleasant 77-year-old male that presented with weakness, weight loss, and overall generalized malaise. He is admitted, and it was presumed that some of this could be related to medications. Fentanyl patch was discontinued, and it was recommended that that be stopped indefinitely. Given the weight loss, positive rectal exam for guaiac positive stool in the emergency room, I felt it would be best to do CT scan of the chest, abdomen and pelvis, and it turns out that there could be a possible retained biliary stent. I also thought that with a hemoglobin dropping from 13 overnight with anemia, that the patient would benefit from an EGD and possibly colonoscopy. I consulted a surgeon. I did discuss with the patient whether not he had a biliary stent but he could not remember. It turns out that are surgeon, Dr. Trejo had actually done the gallbladder removal in 2011 on this patient. The patient had been sent for a common bile duct retained stone, and so it was determined by Dr. Trejo that this patient had a retained stent. He called gastroenterology in [place] and was advised that yes the stent should probably come out at some point. Given the drop in hemoglobin from around 13 on admission to 10.6 today, the continued pain, weight loss over last 3 months the fact that he has atrial fibrillation and is off of his eliquis at this point, I think this would be a perfect opportunity to do this as an inpatient. I spoke with the hospitalist and cell biology scientist in [place] and they were willing to accept the patient. Final recommendations from this hospital stay were to stop fentanyl patch, start vitamin D, retest thyroid in about 3-4 weeks, and eventually visit cardiology to start getting off medications like sotalol due to fatigue and deconditioning. The patient can continue on his hydrocodone on a when necessary basis for pain. Today, he denies any chest pain, denies shortness breath. He is willing to go to [place] to deal with these issues. Assessment and Plan: 1. As per discharge assessments noted 2. Disposition: [facility] 3. Condition on discharge, stable and improved. 4. Diet: Nothing by mouth at discharge 5. Activities: As per [facility] 6. Follow-Up: 1. Primary care provider 1 week postdischarge 2. 7. Medications at the Time of Discharge: Active Medications Generic Name Dose Route Start Last Admin Trade Name Freq PRN Reason Stop Dose Admin Acetaminophen 500 mg 09/24/17 01:58 Tylenol PO Q4H PRN Pain Hydrocodone Bitart/Acetaminophen 1 tab 09/23/17 21:00 09/25/17 08:21 [place] 10/325 Tab PO 1 tab TID ASYA Administration Albuterol Sulfate 2 puff 09/23/17 19:45 Proair Hfa Inhaler INH RTQ4H PRN Wheezing / Shortness of Breath Potassium Chloride/Sodium Chloride 1,000 mls @ 75 mls/hr 09/23/17 18:22 09/25 06:58 Pot Chl 20meq + Ns PRIMARY IV 75 mls/hr .[id number] ASYA Administration Potassium Chloride 20 meq in 100 mls @ 50 mls/hr 09/25/17 10:53 Potassium Chloride 20 Meq IV 09/25/17 12:52 ONCE ONE Lidocaine HCl 10 ml 09/23/17 18:22 Xylocaine Uro-Ject 2% TOPICAL ONCE PRN Discomfort catheter insertion Lidocaine HCl 0.5 ml 09/23/17 19:42 Lidocaine Buffered Inj SUBD ONCE PRN IV Starts Metoprolol Succinate 50 mg 09/24/17 09:00 09/25/17 08:24 Toprol Xl PO Not Given DAILY ASYA Non-Formulary Drug ( 6 tab 09/28/17 09:00 Methotrexate Sodium PO 2.5mg Tab) WEEKLY ASYA Non-Formulary Medication 1 each 09/24/17 12:31 Hold Metformin-See Dose Instructions N/A ONCE PRN Per Protocol Ondansetron HCl 4 mg 09/23/17 19:43 Zofran Inj IVP Q6H PRN NAUSEA / VOMITING Pantoprazole Sodium 40 mg 09/24/17 09:00 09/25/17 08:21 Protonix Inj IVP 40 mg DAILY ASYA Administration Potassium Chloride 40 meq 09/24/17 09:00 09/25/17 08:21 Klor-Con PO 40 meq BID ASYA Administration Pravastatin Sodium 40 mg 09/23/17 21:00 09/24/17 21:18 Pravachol PO 40 mg BEDTIME ASYA Administration Prednisone 20 mg 09/24/17 09:00 09/25/17 08:21 Deltasone Tab PO 20 mg DAILY ASYA Administration Sotalol HCl 80 mg 09/23/17 21:00 09/25/17 08:23 Sorine PO Not Given BID ASYA Tamsulosin HCl 0.4 mg 09/24/17 09:00 09/25/17 08:21 Flomax PO 0.4 mg DAILY ASYA Administration 8. Time, care, counseling and coordination of care for this discharge is greater than 30 minutes. Exam - Vitals Vital Signs: Vital Signs Temperature 97.2 F Temperature Source Temporal Artery Scan Pulse Rate [Pulse Oximeter] 53 Pulse Rate [Pulse Oximeter 59 Bilateral Radial] Respiratory Rate 18 Blood Pressure [Right Arm] 105/62 Blood Pressure [Left Arm] 111/65 Pulse Ox 94 Oxygen Flow Rate 2 Oxygen Delivery Method Room Air Height 6 ft Weight 241 lb - General General Appearance: No Acute Distress, Cooperative - Eye Eye Exam: POSITIVE: No Scleral Icterus - ENT ENT Exam: POSITIVE: Mucous Membranes Moist - Respiratory Respiratory Exam: POSITIVE: Clear to Auscultation - Bilaterally, Breathing Non Labored - Cardiovascular Cardiovascular Exam: POSITIVE: RRR, No Murmur, No Clicks, No Gallops, No Rubs, No JVD - GI/Abdominal GI/Abdominal Exam: POSITIVE: Normal Bowel Sounds, Non Tender, Non Distended, Soft - Extremities Extremities Exam: POSITIVE: No Clubbing Present, No Edema Present, No Cyanosis Present - Neurological Neurological Exam: POSITIVE: Alert, Oriented x 3, No Facial Droop, Speech Intact / Clear, Moves All Extremities Equally Data Peritnent Studies: 09/23/17 09/25/17 09/25/17 15:20 04:55 04:55 WBC 8.96 Hgb 13.6 L 10.6 L Hct 38.8 L 30.9 L Plt Count 124 L Neutrophils % (Manual) 74 Band Neutrophils % 0 Lymphocytes % (Manual) 22 PT 11.1 INR 1.05 Sodium Potassium Chloride Carbon Dioxide Anion Gap BUN Creatinine Glucose Calculated Osmolality Calcium Total Bilirubin AST ALT Alkaline Phosphatase Total Protein Albumin Globulin Vitamin D 25-Hydroxy TSH Free T4 09/25/17 09/25/17 09/25/17 04:55 04:55 04:55 WBC Hgb Hct Plt Count Neutrophils % (Manual) Band Neutrophils % Lymphocytes % (Manual) PT INR Sodium 134 L Potassium 3.2 L Chloride 100 Carbon Dioxide 23 Anion Gap 11 BUN 22 Creatinine 0.7 Glucose 85 Calculated Osmolality 279.0 Calcium 8.5 L Total Bilirubin 1.2 AST 32 ALT 35 Alkaline Phosphatase 44 Total Protein 5.6 L Albumin 2.9 L Globulin 2.7 Vitamin D 25-Hydroxy 14.6 L TSH 0.046 L Free T4 1.78 H Procedures: [address] [facility]. [facility] [place] [id number] PH: [phone] FAX: [phone] ~DIAGNOSTIC IMAGING REPORT~ Patient: NIKKI PHIPPS : [id number] Sex: M Age: 77 Exam Name: CT Abdomen/Pelvis [facility] Contrast Exam Date: 09/24/17 Report # : [id number] CPT Code: 59771 EMR/MR #: [id number] Ordering: DHRUV ELIZABETH Admiting: DHRUV ELIZABETH DO Primary: Jessica Hollingsworth PA-C Attending: DHRUV ELIZABETH DO Signed CT ABDOMEN SCAN WITHOUT AND WITH IV CONTRAST, 09/24/2017 6:40 PM : Clinical History: Weight loss. Weakness. Hemoccult positive stools. Previous Exam: 09/14/[address] abdomen scan from today. Scans are performed from the lower lung bases through the liver and kidneys without and with IV contrast. Sagittal and coronal images are generated. 50 mL of Isovue 300 was injected IV. Water was used for oral contrast for this study. The patient did receive Volumen for the CT scans of the abdomen performed earlier today. Mild bronchiectasis is present in both lower lobes. There is calcific aortic valvular disease along with calcifications in the LAD and left mainstem and the right coronary artery and the left circumflex artery. The liver is normal. The patient is status post cholecystectomy and the common bile duct measures 8 mm. As previously noted, this patient may have stents in the common bile duct. There is no abnormality of the spleen, pancreas, and adrenal glands. Both kidneys are normal in size, shape, position and contour. There is no hydronephrosis or hydroureter. No renal or ureteral calculi are present. There are no abnormal retrocrural or periaortic nodes. There is no ascites. READIN. Normal CT abdomen scan without and with IV contrast. There may be a stent in the common bile duct. 2. Calcific aortic valvular disease. Coronary artery disease. CT PELVIS SCAN WITHOUT AND WITH IV CONTRAST, 09/24/2017 6:40 PM: Clinical History: See above. Previous Exam: 09/14/2011. Scans are performed from just superior to the umbilicus to the symphysis pubis without and with IV contrast. This is the same bolus of IV contrast used for the CT scans of the abdomen. Scans through the lower abdomen and pelvis show no masses, enhancing lesions, or abnormal fluid collections. There is no adenopathy. The appendix is not visualized but there is no inflammatory mass either in the cecal tip or in the right lower quadrant. The small bowel, terminal ileum, and ileocecal valve are intact. The colon is also normal. No annular lesions of the colon are identified. There is diffuse diverticulosis without evidence of diverticulitis. There is a small umbilical hernia through which only mesenteric fat has herniated. Moderate prostatic hypertrophy is present. There are calcifications along the posterior aspect of the ischium and this presumably is secondary to prior trauma to that portion of the pelvis. READING: Normal CT scan of the pelvis without and with IV contrast. There is no obvious lesion to explain the presence of blood in the patient's stools. Dictated By: 09/24/172008 ZEFERINO CLARKE MD. Signed By: 09/24/172023 ZEFERINO CLARKE MD. Patient Problems - Patient Problem List (1) Heme positive stool Current Visit: Yes Status: Acute Code(s): R19.5 - Other fecal abnormalities Category: Medical (2) Abdominal pain Current Visit: Yes Status: Acute Code(s): R10.9 - Unspecified abdominal pain Qualifiers: Abdominal location: generalized Qualified Code(s): R10.84 - Generalized abdominal pain Category: Medical (3) Epigastric pain Current Visit: Yes Status: Acute Code(s): R10.13 - Epigastric pain Category: Medical (4) Rheumatoid arthritis Current Visit: Yes Status: Acute Code(s): M06.9 - Rheumatoid arthritis, unspecified Qualifiers: Rheumatoid arthritis location: multiple sites Rheumatoid factor presence: unspecified presence Qualified Code(s): M06.9 - Rheumatoid arthritis, unspecified Category: Medical (5) On prednisone therapy Current Visit: Yes Status: Chronic Code(s): 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.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 Category: Medical (6) Hypercholesterolemia Current Visit: Yes Status: Chronic Code(s): E78.0 - Pure hypercholesterolemia Category: Medical (7) Hypertension Current Visit: No Status: Acute Code(s): I10 - Essential (primary) hypertension Qualifiers: Category: Medical (8) Benign hypertension Current Visit: Yes Status: Chronic Category: Medical (9) Gastroesophageal reflux disease Current Visit: Yes Status: Chronic Qualifiers: Esophagitis presence: esophagitis presence not specified Qualified Code(s) : K21.9 - Gastro-esophageal reflux disease without esophagitis Category: Medical (10) Fatigue Current Visit: Yes Status: Acute Code(s): R53.83 - Other fatigue Qualifiers: Fatigue type: chronic, unspecified Qualified Code(s): R53.82 - Chronic fatigue, unspecified Category: Medical (11) Loss of weight Current Visit: Yes Status: Acute Code(s): R63.4 - Abnormal weight loss Category: Medical (12) Biliary stent obstruction Current Visit: Yes Status: Acute Code(s): T85.590A - Other mechanical complication of bile duct prosthesis, initial encounter Category: Medical (13) Displacement of biliary stent Current Visit: Yes Status: Acute Code(s): T85.520A - Displacement of bile duct prosthesis, initial encounter Category: Medical
[2017-09-25 12:21] VITALS: BP 104/60; RESP 20; TEMP 96.8; O2SAT 93
[2017-09-28] MEDS ORDERED: METHOTREXATE SODIUM 2.5 MG PO SCH (09:00)
== END 2017-09-25 12:31 | disposition short-term general hospital (02) | DRG 378 ==
LOC: ER 14:45 → MED/SURG 14:45
PROVIDERS: ADMIT Family Medicine; ATTEND Family Medicine